=== PATIENT | male | born 1960 | race Caucasian/White ===

== ENCOUNTER 2019-01-29 04:11 | Inpatient (IN) | payer SELFPAY ==
[2019-01-29 04:38] LABS: Actual Bicarbonate (HCO3a) 26.3 mEq/L (22-28); Analyzer IN Cardio ER; Base Excess (BEa) -1.1 mEq/L (-2.0 to +3.0); CO2 Tension 54.7 mmHg (35.0-45.0); Calcium, Ionized 1.18 mmol/L (1.12-1.30); Carboxyhemoglobin (COHb) 0.7 gm% (0.0-3.0); Hemoglobin (Hb) 14.6 g/dL (14.0-18.0); O2 Tension (PaO2) 91.6 mmHg (80.0-100.0); Potassium - ABG Lab 3.54 mmol/L (3.70-5.30)
[2019-01-29 04:48] LABS: #Basophils 0.1 thou/uL (0.0-0.2); #Eosinphils 0.2 thou/uL (0.0-0.7); #Lymphocytes 1.4 thou/uL (1.20-3.40); #Monocytes 0.6 thou/uL (0.11-0.59); #Neutrophils 13.6 thou/uL (1.40-6.50); %Basophils 0.3 % (0.0-1.0); %Lymphocytes 8.8 % (21.0-51.0); %Neutrophils 85.9 % (42.0-75.0); Mean Corpuscular HGB CONC 32.6 g/dL (32.0-36.0); Mean Platelet Volume 8.7 fL (7.4-10.4); Platelet Count 216 thou/uL (130-400); RBC Distribution Width 11.8 % (11.5-14.5); Red Blood Cell (RBC) Count 4.51 mill/uL (4.70-6.10); White Blood Cell (WBC) Count 15.9 thou/uL (4.8-10.8)
[2019-01-29] MEDS ORDERED: cefTRIAXone\\ROCEPHIN 2 GM VIAL ONE (05:00)
[2019-01-29 05:06] LABS: ALT (SGPT) 17 U/L (8-55); AST (SGOT) 22 U/L (5-34); Albumin 4.1 g/dL (3.5-5.0); Alkaline Phosphatase 64 U/L (40-110); Anion Gap 14 mmol/L (10-20); BUN (Urea Nitrogen) 18 mg/dL (8.4-25.7); Bilirubin, Total 0.4 mg/dL (0.2-1.2); Calc. Creatinine Clearance 0 mL/min (70-130); Calcium 8.9 mg/dL (7.8-10.44); Carbon Dioxide 30 mmol/L (22-29); Chloride 98 mmol/L (98-107); Estimated GFR-MDRD 52; Globulin 2.3 g/dL (2.4-3.5); Glucose 330 mg/dL (70-105); Protein, Total 6.4 g/dL (6.0-8.3); Sodium 138 mmol/L (136-145)
[2019-01-29] MEDS ORDERED: Furosemide 40 MG/4 ML VIAL ONE (05:15)
--- NOTE | 2019-01-29 05:24 | PDOC.FPRHP ---
- History of Present Illness Chief Complaint: SOB History of Present Illness: 58 yo male complains of shortness of breath for three weeks, no swelling, no fever. Woke up last night and couldn't breathe. Has started sleeping at an incline for the past few months because of SOB when he lays flat. Used to smoke 1ppd for 30 years, but hasn't had one in 20 months. Has pmhx of htn but denies other medical history. Has not seen a doctor since he lost wait and stopped taking his BP meds. Denies chest pain. + increased SOB when walking. + Cough usually with clear sputum, but the past couple of weeks the sputum has changed to a darker color. ED Course: lasix 40 IV, ceftriaxone, azithromycin EMS gave 2 doses nitro and CPAP prior to ED arrival. - Allergies/Adverse Reactions Allergies Allergy/AdvReac Type Severity Reaction Status Date / Time No Known Allergies Allergy Verified 01/29/19 08:08 - Home Medications Medication Instructions Recorded Confirmed Type No Known 01/29/19 01/29/19 History - History PMHx: HTN PSHx: Ganglion cyst removal, ear lobe cyst removed FHx: not assessed Social: - Former smoker - Denies alcohol, drugs. 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 denies: chest pain, edema Gastrointestinal: denies: nausea, vomiting, diarrhea, abdominal pain Genitourinary: denies: dysuria Skin: denies: rashes Musculoskeletal: denies: pain Neurological: denies: syncope Psychological: denies: anxiety, depression - Vital signs BP: 170/102, Pulse: 77, Resp: 22, Pain: 0, O2 sat: 99 on Bipap, Time: 2018 05:18. - Physical Exam Constitutional: NAD, awake, alert and oriented, well developed (on BiPAP, able to talk thru BiPAP) HEENT: normocephalic and atraumatic, conjunctiva clear, no scleral icterus Heart: RRR, normal S1/S2, no murmurs/rubs/gallops -Lungs: diminished lung sounds bilaterally in lower lung hardy. Abdomen: soft, non-tender, bowel sounds present, no masses/distention Musculoskeletal: normal structure, normal tone Neurological: no focal deficit Skin: no rash/lesions Heme/Lymphatic: no unusual bruising or bleeding Psychiatric: normal mood and affect, intact recent and remote memory FMR H&P: Results - Labs Result Diagrams: 01/29/19 04:33 01/29/19 04:33 Lab results: WBC 15.9 thou/uL (4.8-10.8) H 01/29/19 04:33 Hgb 14.0 g/dL (14.0-18.0) 01/29/19 04:33 Hct 42.8 % (42.0-52.0) 01/29/19 04:33 MCV 95.0 fL (78.0-98.0) 01/29/19 04:33 Plt Count 216 thou/uL (130-400) 01/29/19 04:33 Neutrophils % 85.9 % (42.0-75.0) H 01/29/19 04:33 Sodium 138 mmol/L (136-145) 01/29/19 04:33 Potassium 4.0 mmol/L (3.5-5.1) 01/29/19 04:33 Chloride 98 mmol/L (98-107) 01/29/19 04:33 Carbon Dioxide 30 mmol/L (22-29) H 01/29/19 04:33 BUN 18 mg/dL (8.4-25.7) 01/29/19 04:33 Creatinine 1.41 mg/dL (0.7-1.3) H 01/29/19 04:33 Glucose 330 mg/dL (70-105) H 01/29/19 04:33 Calcium 8.9 mg/dL (7.8-10.44) 01/29/19 04:33 Total Bilirubin 0.4 mg/dL (0.2-1.2) 01/29/19 04:33 AST 22 U/L (5-34) 01/29/19 04:33 ALT 17 U/L (8-55) 01/29/19 04:33 Alkaline Phosphatase 64 U/L (40-110) 01/29/19 04:33 B-Natriuretic Peptide 1065.3 pg/mL (0-100) H 01/29/19 04:33 Serum Total Protein 6.4 g/dL (6.0-8.3) 01/29/19 04:33 Albumin 4.1 g/dL (3.5-5.0) 01/29/19 04:33 - Radiology Interpretation Chest x-ray Status: image reviewed by me (lungs appear hyperinflated) FMR H&P: A/P - Problem List (1) Hypertension Current Visit: Yes Status: Acute Code(s): I10 - ESSENTIAL (PRIMARY) HYPERTENSION (2) SIRS (systemic inflammatory response syndrome) Current Visit: Yes Status: Acute Code(s): R65.10 - SIRS OF NON-INFECTIOUS ORIGIN W/O ACUTE ORGAN DYSFUNCTION (3) Hyperglycemia due to type 2 diabetes mellitus Current Visit: Yes Status: Acute Code(s): E11.65 - TYPE 2 DIABETES MELLITUS WITH HYPERGLYCEMIA (4) COPD (chronic obstructive pulmonary disease) Current Visit: Yes Status: Acute (5) CHF (congestive heart failure) Current Visit: Yes Status: Acute Code(s): I50.9 - HEART FAILURE, UNSPECIFIED - Plan 58 yo M admitted for: HTN urgency vs emergency Hx of HTN, uncontrolled and not treated - labetalol prn - bring pressures down in controlled fashion - likely will need case mgmt to help find PCP at discharge Acute hypercapnic hypoxic respiratory failure CHF new onset vs COPD exacerbation - Pt improved on BiPAP - Lasix given and scheduled - DuoNebs scheduled - Solumedrol 125 IV today and prednisone 40 PO tomorrow - Received azithromycin and rocephin in ED - ECHO ordered SIRS - pt met sirs criteria w/ tachycardia and WBC - possible source could be pneumonia - procalcitonin ordered and pending - will continue abx if procalcitonin is elevated Type 2 Diabetes Mellitus - glucose 330 on admission - ordered A1C, hypoglycemia protocol Code FULL VTE ppx: LVX Fluids: none Bertha Tobar MD PGY1 Disposition/LOS: Admit to IMCU. FMR H&P: Upper Level - Pertinent history 58 yo gentleman c/o shortness and cough for three weeks. He awoke last night acutely short of breath however, and called EMS. Per EMS was tripoding. They placed him on bipap and brought him to the ER. He improved with the bipap and with lasix IV. He has a 30 pack year hx as well. No prior dx of CHF or COPD, but does not have a PCP. Endorses a hx of HTN. Vitals: BP: 170s/90s HR: RR: O2sat: 85-95% on Bipap PE: on bipap, comfortable tachycardic decreased breath sounds throughout all lung hardy 1+ pitting edema to knees abdomen soft, normal bowel sounds a&ox3 Labs: wbc 15 BNP 1065 Glucose 330 CXR: bilateral pulmonary edema vs infiltrates, hyperexpanded A/P: Acute hypoxic hypercapnic respiratory failure-2/2 CHF exacerbation vs COPD exacerbation. Pt improved with trial of bipap and lasix. With elevated bnp and edema in lower extremities, suspect new onset CHF. Also suspect underlyign COPD , untreated with 30 pack year smoking hx. ABG showed a respiratory acidosis with hypercapnia. Will wean off bipap, continue to diurese, and monitor I/Os. CHF exacerbation, new onset- -fluid overloaded with elevated bnp. Echo ordered, monitor I/Os, Lasix 40 IV given in the ER, start 4o IV daily, consider additional dose this afternoon depending on volume status. COPD, suspected- -decreased breath sounds throughout all lung hardy -will treat for an exacerbation with steroids, abx, breathing treatments -will get a procal to evaluate better for underlying bacterial source; however pt has not had a fever -repeat CBC in am HTN urgency -will monitor and slowly decrease -Labetalol IV prn sbp>190 -would consider starting HCTZ, would wait on an ryan since he has an BOLA BOLA- -unknown baseline -will monitor with BMPs -urine sodium, cr to calculate fena Hyperglycemia- -hba1c, hypoglycemia protocol Type 2 diabetes- -diabetes education, sliding scale -hba1c pending - Plan Date/Time: 01/29/1900 Addendum - Attending - Attending Attestation Date/Time: 01/29/19 8777 I personally evaluated the patient and discussed the management with Dr. Tobar /Tom I agree with the History, Examination, Assessment and Plan documented above with any addition or exceptions noted below. See my dictated H&P for additional details.
[2019-01-29 05:40] LABS: ALV-art Gradient 125.225 (0-20); Puncture Site LRA
[2019-01-29] MEDS ORDERED: Azithromycin 500 MG VIAL ONE (05:43)
[2019-01-29] MEDS ORDERED: Acetaminophen 325 MG TAB PO PRN (06:13)
[2019-01-29] MEDS ORDERED: Ondansetron ODT 4 MG TAB PO PRN (06:13)
[2019-01-29] MEDS ORDERED: Guaifenesin DM 100-10/5 ML UDCUP PO PRN (06:13)
[2019-01-29] MEDS ORDERED: Ondansetron PF 4 MG/2 ML Vial IVP PRN (06:13)
[2019-01-29] MEDS ORDERED: Labetalol HCl 100 MG/20 ML VIAL SLOW IVP PRN (06:33)
[2019-01-29 06:41] LABS: Hemoglobin A1c 6.2 % (4.0-6.0)
[2019-01-29 06:45] LABS: Phosphorus 4.8 mg/dL (2.3-4.7)
[2019-01-29] MEDS ORDERED: methylPREDNISolone Sod Succ/PF 125 MG/2 ML VIAL IVP SCH (06:45)
[2019-01-29 08:02] VITALS: BMI 27.7
[2019-01-29 08:15] LABS: Lactic Acid 2.2 mmol/L (0.5-2.2)
--- NOTE | 2019-01-29 08:28 | RAD ---
PORTABLE CHEST: DATE: 01/19/2019. PROVIDED CLINICAL HISTORY: Dyspnea. FINDINGS: Cardiac silhouette appears prominent, likely at least partially on the basis of portable technique. Prominence of the pulmonary vasculature and pulmonary interstitium are noted. No focal consolidation , pleural fluid, or pneumothorax apparent. IMPRESSION: Pulmonary vascular congestion. Followup is recommended. POS: OFF
[2019-01-29 08:29] LABS: Troponin I 0.057 ng/mL (< 0.028)
[2019-01-29] MEDS ORDERED: predniSONE 20 MG TAB PO SCH (09:00)
[2019-01-29] MEDS: Enoxaparin Sodium 40 MG/0.4 ML SYRINGE SC SCH (09:55)
[2019-01-29] MEDS: Aspirin Chewable 81 MG TAB PO SCH (09:55)
[2019-01-29 11:01] LABS: Troponin I 0.047 ng/mL (< 0.028)
--- NOTE | 2019-01-29 12:46 | HP ---
CHIEF COMPLAINT: Shortness of breath. HISTORY OF PRESENT ILLNESS: I have discussed the patient and reviewed all documentation with Dr. Tobar and Dr. Santos. I agree with history and physical, unless otherwise stated in the following attestation. In summary, Mr. Hood is a pleasant 58-year-old male with an extensive smoking history of 30+ pack years, but who has recently quit within the last 20 to 24 months. He presents with a 1 to 2 week history of progressively worsening shortness of breath that became acutely exacerbated on the evening of his admission. The patient called the EMS, who reported upon arrival, the patient was tripoding. He was placed on BiPAP en route and received nebulizer treatments via EMS. Upon arrival, the patient was found still be profoundly hypertensive in the 190s/110s. This apparently had trended down since arrival of the EMS, who found him in the 220s/110 systolic. He received nitroglycerin from EMS en route for this. In the ER, the patient received a dose of IV Lasix 40 mg and was started on Rocephin and azithromycin. By the time of my examination, the patient was speaking in full sentences and resting comfortably on the BiPAP. He denied a past medical history of COPD or heart failure, but did admit that it has been several years since he had seen a physician. The patient also states he does not have a primary care physician. PAST MEDICAL AND SURGICAL HISTORY: Please see software intern note. FAMILY HISTORY: Please see software intern note. SOCIAL HISTORY: Please see software intern note. PHYSICAL EXAMINATION: VITAL SIGNS: Blood pressure 192/115, respiratory rate 22, oxygen saturation 99 % on BiPAP, pulse 81, temperature 98.5, and current weight 79 kg. GENERAL: Alert and oriented x4. Mild respiratory distress. Appropriately interactive. CV: Normal rate. Regular rhythm. No murmurs, rubs, or gallops. PULMONARY: Mild respiratory distress. LUNGS: Have diffuse wheezing throughout all lung hardy. The patient at this time does not appear to be in impending respiratory failure. PERTINENT LABORATORY FINDINGS: CBC remarkable for white blood count 15.9 with a left shift of 85.9% neutrophils. Creatinine 1.41 with no baseline reference. Glucose 330. BNP 1065.3 and troponin negative x1. ABG has pH at 7.30, pCO2 at 54.7, pO2 at 91.6, bicarb at 26.3, and carboxyhemoglobin at 0.7, this was on BiPAP with a FiO2 of 40%. Chest x-ray personally reviewed by me shows marked long hyperinflation. No obvious infiltrates. Pulmonary vascular congestion noted. A small left-sided pleural effusion. EKG personally reviewed by me showed rate of 106, sinus tachycardia, and normal intervals with frequent PVCs. Appears to have a left axis deviation with voltage criteria for leads V4 through V6 consistent with LVH. No overt ST elevations or depressions. T-wave inversions in leads I, aVF, aVL, V1, and V2. ASSESSMENT AND PLAN: The patient is a 58-year-old male with past medical history of hypertension and 30+ pack-year smoking history. He is currently no longer actively smoking at this time. He presents with a 1-week history of progressively worsening dyspnea that became acutely exacerbated on the evening of admission. He was found to be severely hypertensive. Symptoms have improved with sublingual nitroglycerin and bilevel positive airway pressure. Plan is as follows; 1. Acute hypoxic hypercapnic respiratory failure secondary to chronic obstructive pulmonary disease exacerbation versus congestive heart failure exacerbation. At this time, the patient has clinical features of both. Continue bilevel positive airway pressure for support. Please see plan below for individual problems. 2. Likely new onset congestive heart failure. We will continue b.i.d. IV Lasix. Echocardiogram has been ordered. We will trend troponins. Attempt to control blood pressure with p.r.n. medications. 3. Chronic obstructive pulmonary disease exacerbation. Scheduled DuoNeb and IV steroids. Procalcitonin to determine need for IV antibiotic therapy. 4. Hypertensive urgency. We will continue nitroglycerin patch and p.r.n. IV antihypertensives available. We will start on oral regimen. 5. See software intern note for management of chronic medical conditions. DISPOSITION: He is admitted under inpatient status to the [facility]. Length of stay will likely be greater than two midnights. Job ID: [id number] [facility]
[2019-01-29] MEDS: Furosemide 40 MG/4 ML VIAL SLOW IVP SCH (15:05)
--- NOTE | 2019-01-30 06:01 | PDOC.FM ---
- Subjective Subjective: Pt reports he is breathing much better. He has been up standing and walking around some. He denies chest pain, SOB, or abdominal pain. - Objective MAR Reviewed: Yes Vital Signs & Weight: Vital Signs (12 hours) Temp Pulse Resp Pulse Ox 01/30/19 04:00 98.7 F 01/30/19 00:00 98.9 F 01/29/19 23:13 83 18 94 L 01/29/19 19:59 100 01/29/19 19:28 98.3 F 01/29/19 18:41 74 16 100 Weight Weight 82.129 kg Most Recent Monitor Data Heart Rate from ECG 77 NIBP 123/68 NIBP BP-Mean 86 Respiration from ECG 10 SpO2 94 I&O: 01/28/19 01/29/19 01/30/19 06:59 06:59 06:59 Intake Total 860 Output Total 3950 Balance -3090 Result Diagrams: 01/30/19 06:32 01/30/19 06:32 Phys Exam - Physical Examination Constitutional: NAD HEENT: moist MMs Neck: no JVD Respiratory: no wheezing Diminished breath sounds on right lower lobes with crackles Cardiovascular: RRR, no significant murmur Gastrointestinal: soft, non-tender, no distention, positive bowel sounds Musculoskeletal: no edema, pulses present Neurological: moves all 4 limbs Psychiatric: A&O x 3 Skin: cap refill <2 seconds Dx/Plan (1) CHF (congestive heart failure) Code(s): I50.9 - HEART FAILURE, UNSPECIFIED Status: Acute (2) COPD (chronic obstructive pulmonary disease) Status: Acute (3) Hyperglycemia due to type 2 diabetes mellitus Code(s): E11.65 - TYPE 2 DIABETES MELLITUS WITH HYPERGLYCEMIA Status: Acute (4) Hypertension Code(s): I10 - ESSENTIAL (PRIMARY) HYPERTENSION Status: Acute (5) SIRS (systemic inflammatory response syndrome) Code(s): R65.10 - SIRS OF NON-INFECTIOUS ORIGIN W/O ACUTE ORGAN DYSFUNCTION Status: Acute - Plan Plan: This is a 58 yo male with a pmh of HTN and poor follow up Hypertensive urgency, resolved -Case management to help pt find PCP -PRN labetalol -Likely contributed to pulmonary edema Acute Hypoxic Hypercapnic respiratory failure 2/2 pulmonary edema vs COPD -Pt stable for transfer to [facility], stable on RA -Continue duonebs and respiratory support -Continue steroids, stopping abx as this is likely not related to infection -Bedside lung US shows B lines consistent with fluid overload -Echo shows EF of 50-55% and border line LVH Secondary Pulmonary HTN, likely from COPD -Will change to PO lasix -Pt will likely need RA abg to assess for need for home O2 -Pt will need out pt PFTs SIRS criteria, likely from above, resolved DM2 -A1c at 6.2 -Would consider starting pt on metformin at the time of discharge Addendum - Attending - Attending Attestation Date/Time: 01/30/19 3183 I personally evaluated the patient and discussed the management with Dr. Aguilar. I agree with the History, Examination, Assessment and Plan documented above with any addition or exceptions noted below. Mildly dec HF. Will d/w cards as new diagnosis. Pending their eval add bb/ acei and switch to PO lasix. Xfer to tele.
[2019-01-30] MEDS: Furosemide 40 MG/4 ML VIAL SLOW IVP SCH (06:23)
[2019-01-30 06:57] LABS: Hemoglobin 13.1 g/dL (14.0-18.0); Mean Corpuscular HGB CONC 33.5 g/dL (32.0-36.0); Mean Corpuscular Hemoglobin 31.7 pg (27.0-31.0); Mean Corpuscular Volume 94.7 fL (78.0-98.0); Mean Platelet Volume 9.3 fL (7.4-10.4); Platelet Count 201 thou/uL (130-400); RBC Distribution Width 11.9 % (11.5-14.5); Red Blood Cell (RBC) Count 4.13 mill/uL (4.70-6.10); White Blood Cell (WBC) Count 15.4 thou/uL (4.8-10.8)
[2019-01-30 07:11] LABS: Anion Gap 16 mmol/L (10-20); BUN (Urea Nitrogen) 21 mg/dL (8.4-25.7); Calc. Creatinine Clearance 84 mL/min (70-130); Calcium 9.4 mg/dL (7.8-10.44); Carbon Dioxide 32 mmol/L (22-29); Chloride 96 mmol/L (98-107); Estimated GFR-MDRD 68; Glucose 154 mg/dL (70-105); Potassium 3.4 mmol/L (3.5-5.1); Sodium 141 mmol/L (136-145)
[2019-01-30 07:18] LABS: Band 4 % (5-11); Lymphocytes 9 % (21-51); MDiff Complete? YES; Metamyelocyte 2 % (0-0); Monocytes 6 % (0-10); Neutrophil 76 % (42-75); Platelet Morphology Comment Appears Adequate; RBC Morphology Normal; Reactive Lymphocytes 3 % (0-10)
[2019-01-30 07:21] VITALS: BP 134/77
[2019-01-30] MEDS: Enoxaparin Sodium 40 MG/0.4 ML SYRINGE SC SCH (09:12)
[2019-01-30] MEDS: Aspirin Chewable 81 MG TAB PO SCH (09:12)
[2019-01-30] MEDS ORDERED: Furosemide 20 MG TAB PO SCH (13:30)
[2019-01-30 15:38] VITALS: TEMP 98.4
[2019-01-31] MEDS ORDERED: Furosemide 20 MG TAB PO SCH (09:00)
--- NOTE | 2019-02-01 08:43 | PQF ---
Asim HoodROQUE [id number] CLINICAL DOCUMENTATION CLARIFICATION FORM: POST DISCHARGE Addendum to original discharge summary date: ____ Late entry note date: __ DATE:02/01/2019 ATTN:ROQUE ANGULO Please exercise your independent, professional judgment in responding to the clarification form. Clinical indicators are provided on the bottom of this form for your review Please check appropriate box(s): HEART FAILURE: A. TYPE: [ ] Systolic / HFrEF [ X ] Diastolic / HFpEF [ ] Combined Systolic / Diastolic B. ACUITY [ ] Acute [X ] Acute on Chronic [ ] Chronic [ ] Other diagnosis [ ] Unable to determine In addition, please specify: Present on Admission (POA): [ X] Yes [ ] No [ ] Unable to determine For continuity of documentation, please document condition throughout progress notes and discharge summary. Thank You. CLINICAL INDICATORS - SIGNS / SYMPTOMS / LABS SOB-Documented in H&P on 01/29 by roque Angulo BNP-1065.3-Documented in H&P on 01/29 by roque Angulo Chest x ray-Pulmonary vascular congestion noted,A small left sided pleural effusion-Documented in H&P on 01/29 by roque Angulo Acute hypoxic hypercapnic respiratory failure 2/2 pulmonary edema vs COPD- Documented in Family medicine progress note on 01/30 by Evaristo ochoa Lung US showed B lines consistent with fluid overload-Documented in Family medicine progress note on 01/30 by Evaristo ochoa Echo shows EF of 50-55% and border line LVH RISKS: Hypertensive urgency-Documented in H&P on 01/29 by roque Angulo COPD-Documented in H&P on 01/29 by roque Angulo Acute hypoxic hypercapnic respiratory failure-Documented in H&P on 01/29 by roque Angulo TREATMENTS: Lasix 40 mg IV-Documented in Medication snapshot [employer] (This form is maintained as a part of the permanent medical record) 2014 [employer]. All Rights Reserved [email or web address] [not provided] MTDD
== END 2019-01-30 18:18 | disposition home or self-care (01) | DRG 291 ==
LOC: ERS 04:11 → IMCU/EMU 05:18
PROVIDERS: ADMIT Family Medicine; ATTEND Family Medicine
DX: I11.0 Hypertensive heart disease with heart failure (principal); J96.02 Acute respiratory failure with hypercapnia; J96.01 Acute respiratory failure with hypoxia; J44.1 Chronic obstructive pulmonary disease with (acute) exacerbation; R65.10 Systemic inflammatory response syndrome (SIRS) of non-infectious origin without acute organ dysfunction; N17.9 Acute kidney failure, unspecified; I50.33 Acute on chronic diastolic (congestive) heart failure; I16.0 Hypertensive urgency; E11.65 Type 2 diabetes mellitus with hyperglycemia; I27.20 Pulmonary hypertension, unspecified; Z87.891 Personal history of nicotine dependence
CPT/HCPCS: 36415; 36416; 71045; 80048; 80053; 80061; 82805; 83036; 83605; 83735; 83880; 84100; 84145; 84443; 84484; 85025; 87040; 93005; 93306; 94640; 94660; J0456; J0696; J1650; J1940; J2930; J7512; J7620

== ENCOUNTER 2020-03-30 23:35 | Inpatient (IN) | payer SELFPAY ==
[2020-03-31] MEDS ORDERED: Furosemide 40 MG/4 ML VIAL ONE (00:06)
[2020-03-31] MEDS ORDERED: Aspirin Chewable 81 MG TAB ONE (00:07)
[2020-03-31 00:22] LABS: #Eosinphils 0.1 thou/uL (0.0-0.7); #Lymphocytes 1.1 thou/uL (1.20-3.40); #Monocytes 0.5 thou/uL (0.11-0.59); #Neutrophils 14.1 thou/uL (1.40-6.50); %Basophils 0.1 % (0.0-1.0); %Eosinophils 0.6 % (0.0-10.0); %Neutrophils 89.2 % (42.0-75.0); Mean Corpuscular HGB CONC 34.1 g/dL (32.0-36.0); Mean Corpuscular Hemoglobin 32.7 pg (27.0-31.0); Mean Corpuscular Volume 95.9 fL (78.0-98.0); Mean Platelet Volume 9.4 fL (7.4-10.4); Platelet Count 159 thou/uL (130-400); RBC Distribution Width 11.7 % (11.5-14.5); White Blood Cell (WBC) Count 15.9 thou/uL (4.8-10.8)
[2020-03-31 00:46] LABS: ALT (SGPT) 13 U/L (8-55); AST (SGOT) 19 U/L (5-34); Albumin 4.1 g/dL (3.5-5.0); Alkaline Phosphatase 60 U/L (40-110); Anion Gap 16 mmol/L (10-20); BUN (Urea Nitrogen) 24 mg/dL (8.4-25.7); Bilirubin, Total 0.3 mg/dL (0.2-1.2); CK (CPK) 63 U/L (30-200); Calc. Creatinine Clearance 0 mL/min (70-130); Calcium 8.8 mg/dL (7.8-10.44); Carbon Dioxide 29 mmol/L (22-29); Chloride 98 mmol/L (98-107); Globulin 2.6 g/dL (2.4-3.5); Glucose 241 mg/dL (70-105); Potassium 4.4 mmol/L (3.5-5.1); Protein, Total 6.7 g/dL (6.0-8.3); Sodium 139 mmol/L (136-145)
[2020-03-31] MEDS ORDERED: cloNIDine 0.1 MG TAB ONE (00:56)
[2020-03-31 01:06] LABS: CKMB 2.8 ng/mL (0-6.6)
[2020-03-31 01:13] LABS: SARS-CoV-2 NAA Rapid Test Not Detected (NotDetected)
--- NOTE | 2020-03-31 01:54 | PDOC.HHP ---
Hospitalist HPI - History of Present Illness Shortness of breath History of Present Illness: 59-year-old gentleman with a history of hypertension, admitted 2 years ago for shortness of breath and diagnosed with heart failure, discharged with maintenance oral Lasix presented to the emergency department with a complaint of progressive shortness of breath of 2 days duration. Shortness of breath associated orthopnea and intermittent wheezing, no chest pain. Patient denied any fever. He also reported cough productive of clear sputum. Patient reported not taking any medication over the past 1 month due to loss of insurance. He has not been diagnosed with COPD but has a [id number] history of smoking. His initial troponin is mildly elevated. EKG demonstrated sinus rhythm with nonspecific ST-T changes. He has moderate leukocytosis. Chest x-ray demonstrated increased interstitial markings. BNP is also elevated. His blood pressure was up to 195/129 in the ED. His prior echocardiogram done in January 2019 reported EF of 50 to 55%. Patient is admitted for further management of CHF exacerbation and possible COPD exacerbation. ED Course: Patient given a dose of IV Lasix and oral clonidine for hypertension. in the ED. Hospitalist ROS - Review of Systems Other: Except as documented, all other systems reviewed and negative. Hospitalist History - Past Medical History Cardiac: reports: CHF, HTN - Family History Family History: reports: diabetes mellitus (Mother), hypertension (Both mother and father) - Social History Smoking Status: Former smoker Alcohol: reports: None Drugs: reports: none - Exam General Appearance: NAD, awake alert Eye: PERRL, anicteric sclera ENT: normocephalic atraumatic, no oropharyngeal lesions, moist mucosa Neck: supple, no JVD Heart: RRR, no murmur Respiratory: no wheezes, rales (Mild bibasilar Rales) Gastrointestinal: soft, non-tender, non-distended Extremities: no cyanosis, no edema Skin: normal turgor, no lesions, no rashes Neurological: cranial nerve grossly intact, no focal deficits Musculoskeletal: normal tone, normal strength Psychiatric: normal affect, normal behavior, A&O x 3 Hospitalist Results - Labs Result Diagrams: 03/31/20 03:01 03/31/20 03:01 Lab results: WBC 15.9 thou/uL (4.8-10.8) H 03/31/20 00:12 Hgb 15.0 g/dL (14.0-18.0) 03/31/20 00:12 Hct 44.1 % (42.0-52.0) 03/31/20 00:12 MCV 95.9 fL (78.0-98.0) 03/31/20 00:12 Plt Count 159 thou/uL (130-400) 03/31/20 00:12 Neutrophils % 89.2 % (42.0-75.0) H 03/31/20 00:12 Sodium 139 mmol/L (136-145) 03/31/20 00:12 Potassium 4.4 mmol/L (3.5-5.1) 03/31/20 00:12 Chloride 98 mmol/L (98-107) 03/31/20 00:12 Carbon Dioxide 29 mmol/L (22-29) 03/31/20 00:12 BUN 24 mg/dL (8.4-25.7) 03/31/20 00:12 Creatinine 1.33 mg/dL (0.7-1.3) H 03/31/20 00:12 Glucose 241 mg/dL (70-105) H 03/31/20 00:12 Calcium 8.8 mg/dL (7.8-10.44) 03/31/20 00:12 Total Bilirubin 0.3 mg/dL (0.2-1.2) 03/31/20 00:12 AST 19 U/L (5-34) 03/31/20 00:12 ALT 13 U/L (8-55) 03/31/20 00:12 Alkaline Phosphatase 60 U/L (40-110) 03/31/20 00:12 Creatine Kinase 63 U/L (30-200) 03/31/20 00:12 CK-MB (CK-2) 2.8 ng/mL (0-6.6) 03/31/20 00:12 Troponin I 0.041 ng/mL (< 0.028) H 03/31/20 00:12 B-Natriuretic Peptide 495.0 pg/mL (0-100) H 03/31/20 00:12 Serum Total Protein 6.7 g/dL (6.0-8.3) 03/31/20 00:12 Albumin 4.1 g/dL (3.5-5.0) 01/11/21 00:12 Hospitalist H&P A/P - Problem (1) Acute on chronic diastolic heart failure Code(s): I50.33 - ACUTE ON CHRONIC DIASTOLIC (CONGESTIVE) HEART FAILURE Status: Acute (2) COPD exacerbation Code(s): J44.1 - CHRONIC OBSTRUCTIVE PULMONARY DISEASE W (ACUTE) EXACERBATION Status: Acute (3) Uncontrolled hypertension Code(s): I10 - ESSENTIAL (PRIMARY) HYPERTENSION Status: Acute (4) Leukocytosis Code(s): D72.829 - ELEVATED WHITE BLOOD CELL COUNT, UNSPECIFIED Status: Acute (5) Elevated troponin Code(s): R77.8 - OTHER SPECIFIED ABNORMALITIES OF PLASMA PROTEINS Status: Acute - Plan Plan: COVID-19 screen is negative. Admit the patient to the medical floor. Telemetry Continue to trend troponin Start aspirin, and Coreg. Control blood pressure with lisinopril and Coreg. Hydralazine as needed for BP spikes. IV Lasix. Trend troponin Obtain echocardiogram Cardiology consult Cause of leukocytosis is unclear. No infiltrates on chest x-ray. Monitor CBC. Monitor renal function on Lasix therapy.
[2020-03-31] MEDS ORDERED: hydrALAZINE 20 MG/ML VIAL SLOW IVP PRN (02:01)
[2020-03-31 02:36] VITALS: BMI 26.8
[2020-03-31 03:14] LABS: #Lymphocytes 0.7 thou/uL (1.20-3.40); #Monocytes 0.2 thou/uL (0.11-0.59); #Neutrophils 11.4 thou/uL (1.40-6.50); %Basophils 0.2 % (0.0-1.0); %Eosinophils 0.2 % (0.0-10.0); %Lymphocytes 5.5 % (21.0-51.0); %Monocytes 1.8 % (0.0-10.0); %Neutrophils 92.2 % (42.0-75.0); Hemoglobin 14.5 g/dL (14.0-18.0); Mean Corpuscular HGB CONC 34.1 g/dL (32.0-36.0); Mean Corpuscular Hemoglobin 32.1 pg (27.0-31.0); Mean Corpuscular Volume 94.1 fL (78.0-98.0); Mean Platelet Volume 9.1 fL (7.4-10.4); Platelet Count 184 thou/uL (130-400); RBC Distribution Width 11.7 % (11.5-14.5); Red Blood Cell (RBC) Count 4.51 mill/uL (4.70-6.10); White Blood Cell (WBC) Count 12.4 thou/uL (4.8-10.8)
[2020-03-31 03:44] LABS: Anion Gap 14 mmol/L (10-20); BUN (Urea Nitrogen) 24 mg/dL (8.4-25.7); Calc. Creatinine Clearance 80 mL/min (70-130); Calcium 8.8 mg/dL (7.8-10.44); Carbon Dioxide 28 mmol/L (22-29); Chloride 99 mmol/L (98-107); Glucose 184 mg/dL (70-105); Magnesium 1.9 mg/dL (1.6-2.6); Potassium 3.9 mmol/L (3.5-5.1); Sodium 137 mmol/L (136-145)
[2020-03-31 03:49] LABS: Troponin I 0.064 ng/mL (< 0.028)
[2020-03-31] MEDS: Furosemide 40 MG/4 ML VIAL SLOW IVP SCH ×2 (05:54→14:25)
[2020-03-31] MEDS: methylPREDNISolone Sod Succ 40 MG VIAL IVP SCH ×3 (05:54→22:20)
[2020-03-31 06:35] LABS: Cardiac Risk 4.4 (Less than 4.5)
--- NOTE | 2020-03-31 08:48 | RAD ---
PORTABLE CHEST: INDICATION: Shortness of breath. COMPARISON: 01/29/2019. FINDINGS: There continues to be pulmonary vascular prominence with diffuse interstitial prominence and hazy rosetta eolar opacities bilaterally similar to the prior exam. No confluent consolidation or infiltrate. No significant effusion. Heart size within normal range. IMPRESSION: Continued interstitial and hazy alveolar opacity bilaterally. POS: AGW
[2020-03-31] MEDS: Enoxaparin Sodium 40 MG/0.4 ML SYRINGE SC SCH (08:49)
[2020-03-31] MEDS: Aspirin Chewable 81 MG TAB PO SCH (08:49)
[2020-03-31] MEDS: Carvedilol 6.25 MG TAB PO SCH ×2 (08:49→20:29)
[2020-03-31] MEDS: Lisinopril 10 MG TAB PO SCH (08:49)
[2020-03-31] MEDS ORDERED: FLU VACC QS2020-21(6MOS UP)/PF 60 MCG/0.5 ML SYRINGE IM ONE (09:00)
--- NOTE | 2020-03-31 18:11 | CON ---
DATE OF CONSULTATION: 03/31/2020 INDICATION FOR CONSULTATION: A 59-year-old patient with hypertension, admitted with CHF exacerbation. HISTORY OF PRESENT ILLNESS: This is a very unfortunate 59-year-old gentleman who has a history of hypertension, was seen a couple years ago also due to some acute congestive heart failure. He was discharged on medications. Apparently for the last month, he has not been taking his medications and his blood pressure was significantly elevated to the 190s, and last night, he said he could not even breathe. So, 911 was called and the patient was brought to the emergency room. He denied any chest pain and he has actually diuresed quite a bit and is now feeling better. He had an echocardiogram performed today, which shows ejection fraction 55% to 60% with diastolic dysfunction and trace mitral and tricuspid valve regurgitation. His blood pressure in the emergency room was 195/129. Since he is diuresed and blood pressure is under better control, he is feeling almost back to his baseline. He has not had a stress test that I can determine, but most likely, this would be in order since he has had some slight elevation in cardiac enzymes, which actually most likely was due to the elevation in the blood pressure which was rather severe and the diastolic heart failure. At this time, he is doing much better. His EKG did not show any acute ST-segment changes. He had a sinus rhythm, but just some nonspecific ST-segment changes in the lateral leads, which were also present in the EKG on his last admission. PAST MEDICAL HISTORY: Significant for the congestive heart failure and hypertension. FAMILY HISTORY: Noncontributory except there was some history of hypertension and diabetes. SOCIAL HISTORY: He has not smoked in about 3 years ago. Previously, he smoked relatively heavily. No alcohol use. 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 REVIEW OF SYSTEMS: A 12-point review of systems is unremarkable except what is noted in the history of present illness. MEDICATIONS: Prior to admission include Coreg 3.125 mg b.i.d., Lasix 20 mg a day, aspirin 81 mg a day, and lisinopril 20 mg a day, which he has not been taking. ALLERGIES: THERE ARE NO KNOWN DRUG ALLERGIES. PHYSICAL EXAMINATION: GENERAL: Reveals a well-developed, well-nourished gentleman, who is in no acute distress. VITAL SIGNS: Blood pressure at this time is 122/70, heart rate is 71 and regular. He is afebrile. Respiratory rate 16 and O2 saturation 94% on room air. HEENT: Shows the head to be normocephalic and atraumatic. Carotid pulses are present. There were no bruits. CHEST: Clear to auscultation except for some late expiratory wheezing in both bases. CARDIOVASCULAR: Reveals a regular rate and rhythm with a normal S1 and S2. I did not hear an S3 nor an S4. No other any significant murmurs, heaves, thrills, bruits, or rubs noted. ABDOMEN: Soft, flat, nontender. Positive bowel sounds are present. EXTREMITIES: Showed no clubbing, cyanosis, or edema. Femoral, popliteal, and pedal pulses are present. NEUROLOGIC: The patient appears to be fully intact. PSYCHOSOCIAL: Normal. SKIN: Warm and dry. LABORATORY DATA: Show a WBC of 12.4, hemoglobin 14.5, platelet count 184,000. His sodium was 137, potassium 3.9, BUN was 24, creatinine 1.16, and blood sugar was 184. Actually blood sugar on arrival to the emergency room was 241. I do not see that a hemoglobin A1c has been obtained, but this might be in order since the blood sugars are significantly elevated. His LDL was 149 and triglycerides were 55. His BNP was 495. Troponin-I was 0.04, increased up to 0.064 and then back down to 0.060. IMPRESSION: 1. Diastolic heart failure with exacerbation, most likely due to not taking his medications. We will need to reinstate his medications. 2. Hypertension. Again, we will need to reinstate his medications and hopefully this will stabilize. His blood pressure now is under good control after he has had diuresis. 3. Elevated blood sugar. He may be diabetic. We will try to obtain a hemoglobin A1c and then this will need to be dealt with by the primary care service. 4. Dyslipidemia. He is not on any medicines for cholesterol, but with LDL of 149, if he cannot manage this by diet, then I would suggest he start some statin medications. Given his overall presentation with the acute shortness of breath, whether or not this is entirely due to not taking his medications with the hypertension, but he certainly has risk factors for coronary artery disease, which include hypertension, smoking, and now elevated blood sugars which may indicate diabetes, I would suggest he undergo some type of stress testing. He also has some nonspecific EKG changes, which are not significantly new or not new from his previous EKGs, but with a slight elevation of cardiac enzymes, he may have underlying coronary artery disease, and we would suggest stress testing in this gentleman, and should this be abnormal, then further evaluation will be indicated. We will be more than happy to continue to follow the patient with you. Job ID: [id number]
[2020-04-01] MEDS: Furosemide 40 MG/4 ML VIAL SLOW IVP SCH (05:19)
[2020-04-01] MEDS: methylPREDNISolone Sod Succ 40 MG VIAL IVP SCH ×2 (05:19→13:25)
[2020-04-01 08:04] VITALS: TEMP 97.7
[2020-04-01] MEDS: Carvedilol 6.25 MG TAB PO SCH (11:34)
[2020-04-01] MEDS: Lisinopril 10 MG TAB PO SCH (11:35)
[2020-04-01] MEDS: Aspirin Chewable 81 MG TAB PO SCH (11:35)
[2020-04-01] MEDS: Enoxaparin Sodium 40 MG/0.4 ML SYRINGE SC SCH (11:35)
[2020-04-01 12:06] LABS: Hemoglobin 15.7 g/dL (14.0-18.0); Mean Corpuscular HGB CONC 34.5 g/dL (32.0-36.0); Mean Corpuscular Hemoglobin 32.5 pg (27.0-31.0); Mean Corpuscular Volume 94.1 fL (78.0-98.0); Platelet Count 222 thou/uL (130-400); RBC Distribution Width 12.1 % (11.5-14.5); Red Blood Cell (RBC) Count 4.84 mill/uL (4.70-6.10); White Blood Cell (WBC) Count 20.3 thou/uL (4.8-10.8)
[2020-04-01 12:26] LABS: Anion Gap 18 mmol/L (10-20); BUN (Urea Nitrogen) 31 mg/dL (8.4-25.7); Calc. Creatinine Clearance 72 mL/min (70-130); Calcium 9.5 mg/dL (7.8-10.44); Carbon Dioxide 31 mmol/L (22-29); Chloride 97 mmol/L (98-107); Glucose 210 mg/dL (70-105); Sodium 142 mmol/L (136-145)
[2020-04-01 12:43] LABS: Band 3 % (5-11); Lymphocytes 9 % (21-51); MDiff Complete? YES; Monocytes 3 % (0-10); Neutrophil 83 % (42-75); RBC Morphology Normal; Reactive Lymphocytes 2 % (0-10)
--- NOTE | 2020-04-01 12:55 | NM ---
Radionucleotide stress and rest myocardial perfusion scan with CT attenuation correction and SPECT im aging Left ventricular wall motion evaluation and ejection fraction HISTORY: Chest pain. FINDINGS: Adenosine protocol. Heterogeneous uptake of radiotracer throughout the left ventricular gracie cardium. No focal perfusion defects apparent. QGS analysis of gated SPECT images shows global hypokinesis without focal wall motion abnormality. Ej ection fraction calculated at 39%. IMPRESSION : No evidence of ischemia. Depressed ejection fraction 39%.
[2020-04-01] MEDS ORDERED: Lisinopril 10 MG TAB PO SCH (13:15)
--- NOTE | 2020-04-01 13:16 | PDOC.CPN ---
- Subjective Date: 04/01/20 Time: 13:14 Interval history: No new events overnight. No complaints. Feels much better and back to baseline. - Review of Systems General: denies: fever/chills, weight/appetite/sleep changes, night sweats, fatigue Respiratory: denies: cough, congestion, shortness of breath, exercise intolerance Cardiovascular: denies: chest pain, palpitation, edema, paroxysmal nocturnal dyspnea, orthopnea Gastrointestinal: denies: nausea, vomiting, diarrhea, constipation, abd pain, GI bleeding Musculoskeletal: denies: pain, tenderness, stiffness, swelling, arthritis/arthralgias Neurological: denies: numbness, syncope, seizure, weakness - Objective Allergies/Adverse Reactions: Allergies Allergy/AdvReac Type Severity Reaction Status Date / Time No Known Allergies Allergy Verified 03/31/20 02:58 Visit Medications: Current Medications Albuterol/Ipratropium (Ipratropium/Albuterol Sulfate 3 Ml Neb) 3 ml NEB [id number] PRN PRN Reason: SOB &/or Wheezing Aspirin (Aspirin Chewable 81 Mg Tab) 81 mg PO DAILY [facility] Last Admin: 04/01/20 11:35 Dose: 81 mg Documented by: Carvedilol (Carvedilol 6.25 Mg Tab) 6.25 mg PO BID [facility] Last Admin: 04/01/20 11:34 Dose: 6.25 mg Documented by: Enoxaparin Sodium (Enoxaparin Sodium 40 Mg/0.4 Ml Syringe) 40 mg SC 0900 [facility] Last Admin: 04/01/20 11:35 Dose: 40 mg Documented by: Hydralazine HCl (Hydralazine 20 Mg/Ml Vial) 10 mg SLOW IVP Q4H PRN PRN Reason: Hypertension Lisinopril (Lisinopril 10 Mg Tab) 20 mg PO DAILY [facility] Methylprednisolone Sodium Succinate (Methylprednisolone Sod Succ 40 Mg Vial) 40 mg IVP Q8HR [facility] Last Admin: 04/01/20 05:19 Dose: 40 mg Documented by: Vital Signs & Weight: Vital Signs Temp Pulse Resp BP BP BP Pulse Ox 04/01/20 11:35 129/75 04/01/20 11:34 129/75 04/01/20 11:28 97.7 F 71 16 154/89 H 97 04/01/20 07:30 97.7 F 70 16 151/91 H 97 04/01/20 03:00 97.6 F 70 16 139/72 96 Weight 173 lb 1.6 oz - Quality Measures CV meds: Beta Kaur: Yes, LUIS/ARB: Yes, ASA: Yes - Physical Exam General: alert & oriented x3 HEENT: normocephaly Neck: supple neck, no JVD/HJR Cardiac: regular rate and rhythm Lungs: clear to auscultation Neuro: grossly intact Abdomen: unremarkable Extremities: no edema Skin: clear Musculoskeletal: normal range of motion - Labs Result Diagrams: 04/01/20 11:50 04/01/20 11:50 Troponin/CKMB CK-MB (CK-2) 2.8 ng/mL (0-6.6) 03/31/20 00:12 Troponin I 0.060 ng/mL (< 0.028) H 03/31/20 05:59 - Telemetry Sinus rhythms and dysrhythmias: sinus rhythm - Assessment/Plan Assessment/Plan: 1. HTN. Improved. Continue home meds, increase Coreg. 2. Diastolic dysfunction. Continue betablockers and Luis-I.
[2020-04-01] MEDS ORDERED: ADENOSINE 60 MG/20 ML VIAL ONE (13:18)
--- NOTE | 2020-04-01 14:34 | PDOC.DS.DS ---
Provider - Provider Date of Admission: 03/31/20 01:18 Date of Discharge: 04/01/20 Admitting Provider: Fred Willams MD Consultations: Cardiology (Dr. Cisse) Primary Care Physician: JYOTI Valles Course - Hospital Course Hospital Course: Discharge diagnosis: 1. Acute on chronic diastolic heart failure NYHA class III 2. COPD exacerbation 3. Uncontrolled hypertension 4. Dyslipidemia 5. Non-ST elevation myocardial infarction type II secondary to demand ischemia 6. Influenza test negative 7. Covid PCR test negative Hospital course: Patient is a pleasant 60-year-old gentleman who was admitted to the hospital on March 31, 2019 for shortness of breath secondary to COPD exacerbation and acute on chronic diastolic heart failure. Improved with oxygen, steroids, bronchodilators and intravenous diuretics. He was seen by cardiology service. 2D echocardiogram showed left ventricle ejection fraction of 55 to 60% and AV flow reversal suggestive of diastolic dysfunction. Nuclear stress test did not show any evidence of ischemia. He is being discharged home in a stable condition. Many thanks for allowing me to participate in your patient's care. Please feel free to contact me with any questions or concerns. Discharge destination: Home Total amount of time spent coordinating this discharge: 32 minutes Resuscitation Status: 03/31/20 01:44 Resuscitation Status Routine Resuscitation Status: FULL: Full Resuscitation - Labs Lab Results: 04/01/20 11:50 04/01/20 11:50 Abnormal Lab Results - Last 48 hrs 03/31/20 00:12: WBC 15.9 H, RBC 4.60 L, MCH 32.7 H, Neutrophils % 89.2 H, Lymphocytes % 7.0 L, Neutrophils # 14.1 H, Lymphocytes # 1.1 L 03/31/20 00:12: Troponin I 0.041 H 03/31/20 00:12: Creatinine 1.33 H 03/31/20 00:12: B-Natriuretic Peptide 495.0 H 03/31/20 03:01: Troponin I 0.064 H 03/31/20 03:01: WBC 12.4 H, RBC 4.51 L, MCH 32.1 H, Neutrophils % 92.2 H, Lymphocytes % 5.5 L, Neutrophils # 11.4 H, Lymphocytes # 0.7 L 03/31/20 05:59: Troponin I 0.060 H 03/31/20 05:59: Cholesterol 207 H 04/01/20 11:50: Chloride 97 L, Carbon Dioxide 31 H, BUN 31 H 04/01/20 11:50: WBC 20.3 H, MCH 32.5 H, Neutrophils % (Manual) 83 H, Band Neuts % (Manual) 3 L, Lymphocytes % (Manual) 9 L - Physical Exam Vitals: Vital Signs (12 hours) Temp Pulse Resp BP BP BP Pulse Ox 04/01/20 13:25 129/75 04/01/20 11:35 129/75 04/01/20 11:34 129/75 04/01/20 11:28 97.7 F 71 16 154/89 H 97 04/01/20 07:30 97.7 F 70 16 151/91 H 97 04/01/20 03:00 97.6 F 70 16 139/72 96 Weight Weight 173 lb 1.6 oz Physical Exam: The patient was seen and examined on the day of discharge. Patient denies chest pain or shortness of breath. Vital signs are stable. S1 and S2 are heard. Lungs are clear to auscultation bilaterally. Plan - Discharge Medications Prescriptions: Carvedilol [Coreg] 6.25 mg PO BID #60 tab Furosemide [Lasix] 20 mg PO DAILY #30 tab Lisinopril 20 mg PO DAILY #30 tablet predniSONE 20 mg PO ASDIR #12 tab Home Medications: Medication Instructions Recorded Confirmed Type Aspirin [Aspir-Low] 81 mg PO DAILY #30 tablet. 01/30/19 03/31/20 Rx Carvedilol [Coreg] 6.25 mg PO BID #60 tab 04/01/20 Rx Furosemide [Lasix] 20 mg PO DAILY #30 tab 04/01/20 Rx Lisinopril 20 mg PO DAILY #30 tablet 04/01/20 Rx predniSONE 20 mg PO ASDIR #12 tab 04/01/20 Rx Allergies: No Known Allergies Allergy (Verified 03/31/20 02:58) - Discharge Instructions Discharge Instructions:: Follow-up with your primary care provider for management of dyslipidemia. Activity:: Activity as Tolerated Nourishment:: Heart Healthy Diet, Low Sodium Diet - Follow up Plan Referrals: Vanessa Nascimento FNP [Primary Care Provider] - 04/03/20 9:00 am Disposition: HOME Quality - Care Measures CORE MEASURES:: HF - Stroke/TIA Did you prescribe antithrombotic therapy?: Yes Did you prescribe anticoagulant for A Fib/Flutter?: No Specify reason for no DC anticoagulant: Treatment not indicated Did you prescribe a statin medication?: No Specify reason for no DC statin medication: Treatment not indicated
[2020-04-01 16:05] VITALS: BP 145/81
[2020-04-02] MEDS ORDERED: Lisinopril 20 MG TAB PO SCH (09:00)
[2020-04-02] MEDS ORDERED: Furosemide 20 MG TAB PO SCH (09:00)
--- NOTE | 2020-04-04 03:01 | PQF ---
CLINICAL DOCUMENTATION CLARIFICATION FORM: Dear : Guy Urrutia Date / Time:04/04/20 0307 Please exercise your independent, professional judgment in responding to the clarification form. Clinical indicators are provided on the bottom of this form for your review In your clinical opinion based on clinical findings below, can you please identify the etiology of Myocardial Infarction if due to: Please check appropriate box(es): [ x ] CHF Exacerbation [ ] COPD Exacerbation [ ] Other diagnosis, please specify: [ ] Unable to determine Physician Signature: Date/Time: For continuity of documentation, please document condition throughout progress notes and discharge summary. Thank You. To be completed by CDI/Coding staff for physician review: Present Clinical Indicators - Signs / Symptoms / Labs Results and Location in Medical Record [x] Troponin 0.041; 0.064, BNP 495.0, CK-MB 2.8 Laboratory 03/31 [x] Chest X-ray: Interstitial and hazy alveolar opacity bilaterally Imaging Dr Call 03/31 [x] BP 168/92, Pulse 96, Resp 17, Temp 97.5 Vital signs 03/31 [x] EF 55-60% Echocardiogram Dr Cisse 03/31 [x] Presented with SON associated orthopnea and intermittent wheezing H&P p1 03/31 DR Willams [x] Acute on chronic diastolic heart failure H&P p3 03/31 DR Willams [x] COPD exacerbation H&P p3 03/31 DR Willams [x] Elevated troponin H&P p3 03/31 DR Willams [x] Non-ST elevation myocardial infarction type II secondary to demand ischemia DS p1 04/01 Dr Urrutia [x] EKG: T wave inverted ED Notes 03/31 Present Risk Factors Results and Location in Medical Record [x] HTN H&P p1 03/31 DR Willams [x] Former Smoker H&P p1 03/31 DR Willams [x] HLD Consult 03/31 [x] DM Consult 03/31 Present Treatments Results and Location in Medical Record [x] Aspirin 81 mg oral MAY 19 [x] Catapress 0.1 mg oral MAY 19 [x] IV Lasix 40 mg MAY 19 [x] Oxygen 2L Respiratory panel 03/31 [x] Admitted to Telemetry H&P p3 03/31 DR Willams [x] Trend troponin H&P p3 03/31 DR Willams CDS/[employer] Super[employer] Signature: Celeste Adams Oleksandrmarinorashid Phone #: [phone] Date/Time: 04/04/20 0301 This is a permanent part of the Medical Record [facility]
== END 2020-04-01 16:07 | disposition home or self-care (01) | DRG 190 ==
LOC: ERS 23:35 → 2NO 03-31 01:18
PROVIDERS: ADMIT Internal Medicine; ATTEND Internal Medicine
DX: J44.1 Chronic obstructive pulmonary disease with (acute) exacerbation (principal); I21.A1 Myocardial infarction type 2; I50.33 Acute on chronic diastolic (congestive) heart failure; Z23 Encounter for immunization; Z20.822 Contact with and (suspected) exposure to COVID-19; I11.0 Hypertensive heart disease with heart failure; E78.5 Hyperlipidemia, unspecified; E11.65 Type 2 diabetes mellitus with hyperglycemia; Z87.891 Personal history of nicotine dependence; Z79.899 Other long term (current) drug therapy; Z83.3 Family history of diabetes mellitus; Z82.49 Family history of ischemic heart disease and other diseases of the circulatory system; Z79.82 Long term (current) use of aspirin
CPT/HCPCS: 0240U; 36415; 71045; 78452; 80048; 80053; 80061; 82550; 82553; 83036; 83735; 83880; 84443; 84484; 85025; 90471; 90662; 90732; 93005; 93017; 93306; 93798; 96374; A9500; G0008; G0009; J1650; J1940; J2920

== ENCOUNTER 2020-09-25 20:31 | Emergency (ER) | payer SELFPAY ==
[2020-09-25 20:59] LABS: #Lymphocytes 1.3 thou/uL (1.20-3.40); #Monocytes 1.1 thou/uL (0.11-0.59); #Neutrophils 5.4 thou/uL (1.40-6.50); %Basophils 0.5 % (0.0-1.0); %Eosinophils 0.5 % (0.0-10.0); %Lymphocytes 16.2 % (21.0-51.0); %Neutrophils 68.9 % (42.0-75.0); Hemoglobin 16.6 g/dL (14.0-18.0); Mean Corpuscular Hemoglobin 32.9 pg (27.0-31.0); Mean Corpuscular Volume 93.8 fL (78.0-98.0); Mean Platelet Volume 8.7 fL (7.4-10.4); Platelet Count 156 thou/uL (130-400); RBC Distribution Width 12.1 % (11.5-14.5); Red Blood Cell (RBC) Count 5.04 mill/uL (4.70-6.10); White Blood Cell (WBC) Count 7.8 thou/uL (4.8-10.8)
[2020-09-25 21:25] LABS: ALT (SGPT) 13 U/L (8-55); AST (SGOT) 21 U/L (5-34); Albumin 4.4 g/dL (3.5-5.0); Alkaline Phosphatase 58 U/L (40-110); Anion Gap 15 mmol/L (10-20); BUN (Urea Nitrogen) 14 mg/dL (8.4-25.7); Bilirubin, Total 0.7 mg/dL (0.2-1.2); Calc. Creatinine Clearance 0 mL/min (70-130); Calcium 9.4 mg/dL (7.8-10.44); Carbon Dioxide 26 mmol/L (22-29); Chloride 97 mmol/L (98-107); Globulin 3.1 g/dL (2.4-3.5); Glucose 264 mg/dL (70-105); Potassium 3.9 mmol/L (3.5-5.1); Protein, Total 7.5 g/dL (6.0-8.3); Sodium 134 mmol/L (136-145)
[2020-09-25] MEDS ORDERED: predniSONE 20 MG TAB ONE (21:27)
== END 2020-09-25 22:36 | disposition home or self-care (01) ==
LOC: ERS 20:31
DX: R06.00 Dyspnea, unspecified (principal); I11.0 Hypertensive heart disease with heart failure; I50.9 Heart failure, unspecified; E78.5 Hyperlipidemia, unspecified; Z87.891 Personal history of nicotine dependence; Z79.899 Other long term (current) drug therapy
CPT/HCPCS: 36415; 71045; 80053; 83880; 84484; 85025; 93005; J7512; J7620

== ENCOUNTER 2024-03-25 12:31 | Emergency (ER) | payer OTHER, SELFPAY ==
[2024-03-25 13:11] LABS: #Basophils 0.03 10x3/uL (0.0-0.2); %Basophils 0.2 % (0.0-1.0); %Eosinophils 0.3 % (0.0-10.0); %Lymphocytes 7.2 % (21.0-51.0); %Monocytes 8.7 % (0.0-10.0); %Neutrophils 83.2 % (42.0-75.0); Hematocrit 40.6 % (42.0-52.0); Hemoglobin 14.7 g/dL (14.0-18.0); Mean Corpuscular HGB CONC 36.2 g/dL (32.0-36.0); Mean Corpuscular Hemoglobin 31.9 pg (27.0-31.0); Mean Corpuscular Volume 88.1 fL (78.0-98.0); Mean Platelet Volume 11.1 fL (7.4-10.4); Platelet Count 172 10x3/uL (130-400); RBC Distribution Width 11.9 % (11.5-14.5); Red Blood Cell (RBC) Count 4.61 mill/uL (4.70-6.10)
[2024-03-25 13:28] LABS: ALT (SGPT) 12 U/L (8-55); AST (SGOT) 11 U/L (5-34); Albumin 3.7 g/dL (3.4-4.8); Alkaline Phosphatase 69 U/L (40-110); Anion Gap 16 mmol/L (10-20); BUN (Urea Nitrogen) 16 mg/dL (8.4-25.7); Bilirubin, Total 0.8 mg/dL (0.2-1.2); Calc. Creatinine Clearance 0 mL/min (70-130); Carbon Dioxide 26 mmol/L (23-31); Chloride 97 mmol/L (98-107); Estimated GFR 72; Globulin 3.8 g/dL (2.4-3.5); Glucose 280 mg/dL (80-115); Potassium 3.7 mmol/L (3.5-5.1); Protein, Total 7.5 g/dL (5.8-8.1); Sodium 135 mmol/L (136-145)
[2024-03-25 13:33] LABS: Troponin I 0.038 ng/mL (< 0.028)
[2024-03-25 15:47] LABS: Troponin I 0.037 ng/mL (< 0.028)
[2024-03-25] MEDS ORDERED: Ketorolac Tromethamine 30 MG (1 mL) VIAL ONE (16:29)
== END 2024-03-25 16:40 | disposition home or self-care (01) ==
LOC: ERS 12:31
DX: S29.011A Strain of muscle and tendon of front wall of thorax, initial encounter (principal); I11.0 Hypertensive heart disease with heart failure; I50.9 Heart failure, unspecified; X58.XXXA Exposure to other specified factors, initial encounter; Z87.891 Personal history of nicotine dependence; Z79.899 Other long term (current) drug therapy
CPT/HCPCS: 36415; 71045; 80053; 84484; 85025; 93005; 96374; J1885

== ENCOUNTER 2025-03-12 19:22 | Emergency (ER) | payer OTHER ==
[2025-03-12 19:45] LABS: #Basophils Less than 0.03 10x3/uL (0.0-0.2); #Eosinophils 0.08 10x3/uL (0.0-0.7); #Monocytes 1.12 10x3/uL (0.11-0.59); #Neutrophils 9.10 10x3/uL (1.40-6.50); %Basophils 0.2 % (0.0-1.0); %Eosinophils 0.7 % (0.0-10.0); %Lymphocytes 11.3 % (21.0-51.0); %Monocytes 9.6 % (0.0-10.0); %Neutrophils 77.8 % (42.0-75.0); Hematocrit 41.9 % (42.0-52.0); Hemoglobin 14.4 g/dL (14.0-18.0); Mean Corpuscular Hemoglobin 30.6 pg (27.0-31.0); Mean Corpuscular Volume 89.1 fL (78.0-98.0); Platelet Count 209 10x3/uL (130-400); Red Blood Cell (RBC) Count 4.70 mill/uL (4.70-6.10); White Blood Cell (WBC) Count 11.69 10x3/uL (4.8-10.8)
[2025-03-12 20:09] LABS: ALT (SGPT) 12 U/L (Less than 45); AST (SGOT) 23 U/L (11-34); Albumin 4.1 g/dL (3.1-4.5); Alkaline Phosphatase 59 U/L (40-110); Anion Gap 21 mmol/L (10-20); BUN (Urea Nitrogen) 17 mg/dL (8.4-25.7); Bilirubin, Total 0.7 mg/dL (0.3-1.2); Calc. Creatinine Clearance 0 mL/min (70-130); Calcium 9.9 mg/dL (7.8-10.44); Carbon Dioxide 27 mmol/L (23-31); Chloride 97 mmol/L (98-107); Globulin 3.1 g/dL (2.4-3.5); Glucose 219 mg/dL (80-115); Potassium 3.9 mmol/L (3.5-5.1); Sodium 141 mmol/L (136-145)
[2025-03-12 22:03] LABS: Actual Bicarbonate (HCO3v) 29.3 mEq/L (22-28); Base Excess 3.1 mEq/L (-2.0 to +3.0); Calcium, Ionized (venous) 1.15 mmol/L (1.16-1.32); Chloride (VBG) 96 mmol/L (98-106); Hematocrit-VBG 46 % (42.0-52.0); Hemoglobin (Hb) 15.7 g/dL (13.1-17.2); Potassium (VBG) 3.77 mmol/L (3.70-5.30); Sodium 139 mmol/L (133-146)
== END 2025-03-12 23:16 | disposition home or self-care (01) ==
LOC: ERS 19:22
DX: J11.1 Influenza due to unidentified influenza virus with other respiratory manifestations (principal); I11.0 Hypertensive heart disease with heart failure; I50.9 Heart failure, unspecified; D72.829 Elevated white blood cell count, unspecified; R79.89 Other specified abnormal findings of blood chemistry; Z87.891 Personal history of nicotine dependence; Z79.899 Other long term (current) drug therapy
CPT/HCPCS: 71045; 80053; 82805; 83880; 84484; 85025; 93005; 94760